=== PATIENT | female | born 1990 | race Caucasian/White ===

== ENCOUNTER 2017-04-13 12:10 | Emergency (ER) | payer SELFPAY ==
[2017-04-13] MEDS ORDERED: Ondansetron 4 MG/2 ML SDV IVPUSH ONE (12:46)
[2017-04-13] MEDS ORDERED: Sodium Chloride 0.9% 1,000 ML IV ONE (12:46)
[2017-04-13] MEDS ORDERED: Ketorolac 30 MG/ML SDV IM ONE (12:46)
--- NOTE | 2017-04-13 12:54 | EDM.PDOC ---
ED HPI GENERAL MEDICAL PROBLEM - General Chief Complaint: Abdominal Pain Stated Complaint: LOWER ABDOMINAL PAIN Time Seen by Provider: 04/13/17 12:46 Source of Information: Reports: Patient History Limitations: Reports: No Limitations - History of Present Illness INITIAL COMMENTS - FREE TEXT/NARRATIVE: Patient is a 26-year-old female who presents the emergency department today with a complaint of left lower abdominal pain and left flank pain. Patient states discomfort started in left lower abdomen yesterday and then progressed today to left flank. Patient states she does have a history of ovarian cysts. Patient also states that she noticed her urine is dark, has nausea but no vomiting. Patient denies vaginal discharge, sexual activity, fever, any trauma, bowel changes, or blood in stool. Patient declines pelvic exam at this time. Onset: Gradual Onset Date: 04/12/17 Duration: Day(s): Location: Reports: Abdomen Quality: Reports: Ache, Sharp Severity: Moderate Improves with: Reports: None Worsens with: Reports: None Associated Symptoms: Reports: Nausea/Vomiting Left Lower Abdomen Pain Score (Numeric/FACES): 10 - Related Data Allergies Allergy/AdvReac Type Severity Reaction Status Date / Time No Known Allergies Allergy Verified 04/13/17 12:20 Home Meds: Home Meds Cephalexin [Keflex] 500 mg PO TID #21 cap 04/13/17 [Rx] Dextroamphetamine/Amphetamine [Adderall 20 mg Tablet] 20 mg PO BID 04/13/17 [ History] traZODone 50 mg PO BEDTIME 04/13/17 [History] ED ROS GENERAL - Review of Systems Review Of Systems: ROS reveals no pertinent complaints other than HPI. Constitutional: Reports: No Symptoms HEENT: Reports: No Symptoms Respiratory: Reports: No Symptoms Cardiovascular: Reports: No Symptoms Endocrine: Reports: No Symptoms GI/Abdominal: Reports: Abdominal Pain, Nausea. Denies: Bloody Stool, Constipation, Diarrhea, Mucous in Stool, Vomiting : Reports: Flank Pain (left), Other (dark urine) Musculoskeletal: Reports: No Symptoms Skin: Reports: No Symptoms Neurological: Reports: No Symptoms Psychiatric: Reports: No Symptoms Hematologic/Lymphatic: Reports: No Symptoms Immunologic: Reports: No Symptoms ED EXAM, GI/ABD - Physical Exam Exam: See Below Exam Limited By: No Limitations General Appearance: Alert, WD/WN, No Apparent Distress Throat/Mouth: Normal Inspection, Normal Oropharynx, No Airway Compromise Head: Atraumatic, Normocephalic Neck: Normal Inspection Respiratory/Chest: No Respiratory Distress, Lungs Clear, Normal Breath Sounds, No Accessory Muscle Use, Chest Non-Tender Cardiovascular: Regular Rate, Rhythm, No Murmur GI/Abdominal Exam: Normal Bowel Sounds, Soft, Tender (RLQ). No: Guarding, Rigid , Rebound (Female) Exam: Deferred (PT REFUSED) Back Exam: CVA Tenderness (L). No: CVA Tenderness (R) Extremities: Normal Inspection, No Pedal Edema Neurological: Alert, Oriented, Normal Cognition Psychiatric: Normal Affect, Normal Mood Skin Exam: Warm, Dry, Intact, Normal Color, No Rash Course - Vital Signs Last Recorded V/S: Last Vital Signs Temp 96.7 F 04/13/17 12:23 Pulse 77 04/13/17 12:23 Resp 20 04/13/17 12:23 BP 116/68 04/13/17 12:23 Pulse Ox 97 04/13/17 12:23 - Orders/Labs/Meds Orders: Active Orders 24 hr Category Date Time Status CBC WITH AUTO DIFF [HEME] Stat Lab 04/13/17 12:40 Ordered CMP [COMPREHENSIVE METABOLIC PN,CMP] [CHEM] Stat Lab 04/13/17 12:40 Ordered HCG QUANTITATIVE,SERUM [CHEM] Stat Lab 04/13/17 12:40 Ordered UA W/MICROSCOPIC [URIN] Stat Lab 04/13/17 12:40 Ordered Sodium Chloride 0.9% @ 999 MLS/HR (1000ml) Med 04/13/17 12:46 Ordered Sodium Chloride 0.9% [Normal Saline] 1,000 ml IV .BOLUS Medication Orders Sodium Chloride (Normal Saline) 1,000 mls @ 999 mls/hr IV .BOLUS ONE Stop: 04/13/17 13:46 Meds: Medications Generic Name Dose Route Start Last Admin Trade Name Freq PRN Reason Stop Dose Admin Sodium Chloride 1,000 mls @ 999 mls/hr 04/13/17 12:46 Normal Saline IV 04/13/17 13:46 .BOLUS ONE Discontinued Medications Generic Name Dose Route Start Last Admin Trade Name Freq PRN Reason Stop Dose Admin Ketorolac Tromethamine 30 mg 04/13/17 12:46 Toradol IM 04/13/17 12:47 ONETIME ONE Ondansetron HCl 4 mg 04/13/17 12:46 Zofran IVPUSH 04/13/17 12:47 ONETIME ONE - Radiology Interpretation Free Text/Narrative:: CT abdomen and pelvis without contrast shows no acute process. - Re-Assessments/Exams Free Text/Narrative Re-Assessment/Exam: 04/13/17 14:23 Patient afebrile, nontoxic appearing, vital signs stable, pain relieved. Mother at bedside. Rocephin 1 g IV given in ER. Patient will be sent home with Keflex for 7 days. Follow-up with PCP and 3-5 days. Departure - Departure Time of Disposition: 14:23 Disposition: Home, Self-Care 01 Condition: Good Clinical Impression: UTI (urinary tract infection) Qualifiers: Urinary tract infection type: acute cystitis Hematuria presence: with hematuria Qualified Code(s): N30.01 - Acute cystitis with hematuria - Discharge Information Instructions: Urinary Tract Infection, Adult, [id number] Referrals: Joanna Camacho PA-C [Primary Care Provider] - Forms: ED Department Discharge Additional Instructions: Follow-up with PCP in the next 3-5 days. Return to emergency department sooner if symptoms continue or worsen. - My Orders Last 24 Hours: My Active Orders 04/13/17 12:40 CBC WITH AUTO DIFF [HEME] Stat CMP [COMPREHENSIVE METABOLIC PN,CMP] [CHEM] Stat HCG QUANTITATIVE,SERUM [CHEM] Stat UA W/MICROSCOPIC [URIN] Stat 04/13/17 12:46 Sodium Chloride 0.9% @ 999 MLS/HR (1000ml) Sodium Chloride 0.9% [Normal Saline] 1,000 ml IV .BOLUS - Assessment/Plan Last 24 Hours: My Active Orders 04/13/17 12:40 CBC WITH AUTO DIFF [HEME] Stat CMP [COMPREHENSIVE METABOLIC PN,CMP] [CHEM] Stat HCG QUANTITATIVE,SERUM [CHEM] Stat UA W/MICROSCOPIC [URIN] Stat 04/13/17 12:46 Sodium Chloride 0.9% @ 999 MLS/HR (1000ml) Sodium Chloride 0.9% [Normal Saline] 1,000 ml IV .BOLUS Assessment:: UTI Plan: Follow-up with PCP
[2017-04-13] MEDS ORDERED: cefTRIAXone 1 GM Vial IVPUSH ONE (13:16)
[2017-04-13 13:29] LABS: CHLORIDE,CL 102 mmol/L (98-115); SODIUM,NA 138 mmol/L (136-145)
== END 2017-04-13 14:30 | disposition home or self-care (01) ==
LOC: KA.ED 12:10
DX: N30.01 Acute cystitis with hematuria (principal)
CPT/HCPCS: 74176; 80053; 81001; 84702; 85025; 96361; 96372; 96374; 96375; 99284; J0696; J1885; J2405; J7030; 87086; 87186

== ENCOUNTER 2018-12-01 13:08 | Emergency (ER) | payer SELFPAY ==
--- NOTE | 2018-12-01 13:57 | EDM.PDOC ---
ED HPI GENERAL MEDICAL PROBLEM - General Chief Complaint: Lower Extremity Injury/Pain Stated Complaint: RIGHT ANKLE INJURY Time Seen by Provider: 12/01/18 13:10 Source of Information: Reports: Patient - History of Present Illness INITIAL COMMENTS - FREE TEXT/NARRATIVE: Patient presents to the emergency room today with complaints of pain swelling over the lateral aspect of her right ankle. She had an inversion type injury yesterday evening while walking. She has pain, tenderness and swelling laterally. She has difficulty bearing weight due to discomfort. She tried ice packs last night and took ibuprofen this morning. 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) Other Treatments INSIDE HORTICULTURAL SPECIALTY GROWER: ibuprofen Right Ankle Pain Score (Numeric/FACES): 7 - Related Data Allergies Allergy/AdvReac Type Severity Reaction Status Date / Time No Known Allergies Allergy Verified 12/01/18 13:14 Home Meds: Home Meds Dextroamphetamine/Amphetamine [Adderall 20 mg Tablet] 40 mg PO BID 04/13/17 [ History] ALPRAZolam [Xanax] 0.25 mg PO Q4H PRN 12/01/18 [History] Escitalopram [Lexapro] 40 mg PO DAILY 12/01/18 [History] Past Medical History HEENT History: Reports: Impaired Vision 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 ED EXAM, GENERAL - Physical Exam Exam: See Below Exam Limited By: No Limitations General Appearance: Alert, WD/WN, No Apparent Distress Ears: Hearing Grossly Normal Nose: Normal Inspection Throat/Mouth: Normal Voice Head: Atraumatic Neck: Normal Inspection Respiratory/Chest: No Respiratory Distress Extremities: Joint Swelling, Limited Range of Motion, Other (Right ankle exam shows swelling over the lateral aspect ankle she's tender along the lateral ankle gutter particularly over ATF ligament. She has mild tenderness palpation over the distal fibula. She has no tenderness proximally up to the knee. There is no tenderness on the medial ankle joint no deltoid ligament tenderness good pushoff strength with continuity Achilles is felt throughout. Pulses are 2+ skin is warm dry and intact there's no abrasions. There is no pain or tenderness with heel compression. No mid or forefoot tenderness told her mobile) Neurological: Alert, Oriented, No Motor/Sensory Deficits Psychiatric: Normal Affect, Normal Mood Skin Exam: Warm, Dry, Intact, Normal Color, No Rash Course - Vital Signs Last Recorded V/S: Last Vital Signs Temp 98.1 F 12/01/18 13:10 Pulse 60 12/01/18 13:10 Resp 18 12/01/18 13:10 BP 146/75 H 12/01/18 13:10 Pulse Ox 95 12/01/18 13:10 - Orders/Labs/Meds Orders: Active Orders 24 hr Category Date Time Status Ankle Min 3V Rt [CR] Stat Exams 12/01/18 13:31 Ordered - Radiology Interpretation Free Text/Narrative:: 3 views right ankle Discussion : there is soft tissue swelling over the lateral aspect of the ankle no fracture no ankle dislocation Impression: Negative for fracture right ankle. Soft tissue swelling laterally Departure - Departure Time of Disposition: 13:57 Disposition: Home, Self-Care 01 Condition: Good Clinical Impression: Right ankle sprain Qualifiers: Encounter type: initial encounter Involved ligament of ankle: anterior talofibular ligament Qualified Code(s): S93.491A - Sprain of other ligament of right ankle, initial encounter - Discharge Information Instructions: How to Use a Stirrup Ankle Brace, [id number], RICE Therapy for Routine Care of Injuries, [id number], Ankle Sprain, Phase I Rehab-SportsMed Referrals: PCP,Not In Area [Primary Care Provider] - Forms: ED Department Discharge - My Orders Last 24 Hours: My Active Orders 12/01/18 13:31 Ankle Min 3V Rt [CR] Stat - Assessment/Plan Last 24 Hours: My Active Orders 12/01/18 13:31 Ankle Min 3V Rt [CR] Stat Assessment:: Right ankle sprain Plan: 1. R.I.C.E (rest, ice, compression, elevation) 2. Ibuprofen 800 mg 3 times a day with food for pain 3. Ankle brace for stability. 4. Crutches as needed for ambulation patient may weight-bear as tolerated as comfort allows. 5. Follow-up with your primary care in a week to 10 days for clinical check and begin phase I rehabilitation for ankle sprain.
--- NOTE | 2018-12-01 14:14 | CR ---
[id number] RAD/RAD Ankle Right 3V Min EXAM: RIGHT ANKLE 3 VIEWS INDICATION: Ankle injury with swelling. COMPARISON: None. DISCUSSION: Lateral soft tissue swelling. No acute fracture, dislocation or other osseous abnormality is identified. IMPRESSION: 1. Soft tissue swelling. No fracture identified. Rainer Trevino MD 12/01/18 1735 Thank you for allowing us to participate in the care of your patient.
== END 2018-12-01 14:15 | disposition home or self-care (01) ==
LOC: KA.ED 13:08
DX: S93.491A Sprain of other ligament of right ankle, initial encounter (principal); F41.9 Anxiety disorder, unspecified; F32.9 Major depressive disorder, single episode, unspecified; F17.210 Nicotine dependence, cigarettes, uncomplicated; Z79.899 Other long term (current) drug therapy; X50.1XXA Overexertion from prolonged static or awkward postures, initial encounter
CPT/HCPCS: 73610-RT; 99283; 99283-25

== ENCOUNTER 2019-07-07 11:00 | Emergency (ER) | payer SELFPAY ==
[2019-07-07] MEDS ORDERED: Sodium Chloride 0.9% 10 ML Syringe FLUSH PRN (11:10)
--- NOTE | 2019-07-07 11:11 | EDM.PDOC ---
ED HPI GENERAL MEDICAL PROBLEM - General Chief Complaint: Abdominal Pain Stated Complaint: ABDOMINAL PAIN Time Seen by Provider: 07/07/19 11:08 History Limitations: Reports: No Limitations - History of Present Illness INITIAL COMMENTS - FREE TEXT/NARRATIVE: Emma, has been experiencing upper abdominal discomfort for the past 2 weeks. She states this is been consistent, slightly worsening but not severe. Has sought no evaluation during this time and presents today as it is her first day off available for evaluation. It is been prominent epigastric today, worsening with lifting and bending, making her question if it is some form of hernia or strain muscle. She has not been using any antacid or reflux medication recently. Stated they were given at one time and only used for a couple weeks and was cleared for cessation of those medications, when she was at the [facility] for her follow-up. Last menses was between the and june, regular. Is on Nexplanon implant at this time stating it is approaching expiration and needs to be removed. Denies risk. Discomfort does not change with eating or drinking, does not change with bowel movement nor urination. Discomfort seems to be related to position primarily. Denies recent travel, fever or chills, or any specific trauma. 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 (see below) (NONE) Right Upper Abdominal Pain Score (Numeric/FACES): 4 - Related Data Allergies Allergy/AdvReac Type Severity Reaction Status Date / Time No Known Allergies Allergy Verified 07/07/19 11:08 Home Meds: Home Meds Dextroamphetamine/Amphetamine [Adderall 20 mg Tablet] 20 mg PO BID 04/13/17 [ History] ALPRAZolam [Xanax] 0.25 mg PO Q4H PRN 12/01/18 [History] Escitalopram [Lexapro] 40 mg PO DAILY 12/01/18 [History] Past Medical History HEENT History: Reports: Impaired Vision Gastrointestinal History: Reports: None 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: , 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 (See Below) 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: Psychiatric History: Reports: ADD, Anxiety, Depression, Panic Attack - Infectious Disease History Infectious Disease History: Reports: Chicken Pox Social & Family History - Family History Family Medical History: Noncontributory - Tobacco Use Smoking Status *Q: Current Every Day Smoker Tobacco Use Within Last Twelve Months: Cigarettes - Caffeine Use Caffeine Use: Reports: Soda ED ROS GENERAL - Review of Systems Review Of Systems: See Below Constitutional: Reports: No Symptoms HEENT: Reports: No Symptoms Respiratory: Reports: No Symptoms Cardiovascular: Reports: No Symptoms Endocrine: Reports: No Symptoms GI/Abdominal: Reports: Abdominal Pain. Denies: Constipation, Diarrhea : Reports: No Symptoms. Denies: Irregular Menses Musculoskeletal: Reports: Muscle Pain Skin: Reports: No Symptoms Neurological: Reports: No Symptoms Psychiatric: Reports: No Symptoms Hematologic/Lymphatic: Reports: No Symptoms Immunologic: Reports: No Symptoms ED EXAM, GENERAL - Physical Exam Exam: See Below Exam Limited By: No Limitations General Appearance: Alert, WD/WN, No Apparent Distress Ears: Normal External Exam, Normal Canal, Hearing Grossly Normal, Normal TMs Nose: Normal Inspection, Normal Mucosa, No Blood Throat/Mouth: Normal Inspection, Normal Lips, Normal Teeth, Normal Gums, Normal Oropharynx, Normal Voice, No Airway Compromise Head: Atraumatic, Normocephalic Neck: Normal Inspection, Supple, Non-Tender, Full Range of Motion Respiratory/Chest: No Respiratory Distress, Lungs Clear, Normal Breath Sounds, No Accessory Muscle Use, Chest Non-Tender Cardiovascular: Normal Peripheral Pulses, Regular Rate, Rhythm, No Edema, No Gallop, No JVD, No Murmur, No Rub GI/Abdominal: Normal Bowel Sounds, Soft, No Organomegaly, No Distention, No Abnormal Bruit, No Mass, Tender (Predominantly mid upper abdominal and epigastric), Other (There is no pain to percussion of the flank. There is no pain of the regions of the abdomen, with no rebound tenderness.) (Female) Exam: Deferred Rectal (Female) Exam: Deferred Back Exam: Normal Inspection, Full Range of Motion. No: CVA Tenderness (L), CVA Tenderness (R), Paraspinal Tenderness, Vertebral Tenderness Extremities: Normal Inspection, Normal Range of Motion, Non-Tender, Normal Capillary Refill, No Pedal Edema Neurological: Alert, Oriented, CN II-XII Intact, Normal Cognition, Normal Gait, Normal Reflexes, No Motor/Sensory Deficits Psychiatric: Normal Affect, Normal Mood Skin Exam: Warm, Dry, Intact, Normal Color, No Rash Lymphatic: No Adenopathy Course - Vital Signs Last Recorded V/S: Last Vital Signs Temp 35.8 C L 07/07/19 11:15 Pulse 62 07/07/19 11:15 Resp 14 07/07/19 11:15 BP 121/72 07/07/19 11:15 Pulse Ox 96 07/07/19 11:15 - Orders/Labs/Meds Orders: Active Orders 24 hr Category Date Time Status Peripheral IV Care [RC] . DIRECTED Care 07/07/19 11:10 Active Sodium Chloride 0.9% [Saline Flush] Med 07/07/19 11:10 Active 10 ml FLUSH Q8HR PRN Peripheral IV Insertion Adult [OM.PC] Routine Oth 07/07/19 11:10 Ordered Medication Orders Sodium Chloride (Saline Flush) 10 ml FLUSH Q8HR PRN PRN Reason: keep vein open Labs: Laboratory Tests 07/07/19 07/07/19 07/07/19 Range/Units 11:14 11:14 11:34 WBC 6.88 (5.00-10.00) 10^3/uL RBC 4.47 (3.80-5.50) 10^6/uL Hgb 13.9 (12.0-16.0) g/dL Hct 42.3 (37.0-47.0) % MCV 94.6 H (82.0-92.0) fL MCH 31.1 H (27.0-31.0) pg MCHC 32.9 (32.0-36.0) g/dL RDW 12.3 (11.5-14.5) % Plt Count 232 (150-400) 10^3/uL MPV 11.7 H (7.4-10.4) fL Immature Gran % (Auto) 0.0 (0.0-5.0) % Neut % (Auto) 61.6 (50.0-70.0) % Lymph % (Auto) 29.2 (20.0-40.0) % [place] % (Auto) 6.8 (2.0-8.0) % Eos % (Auto) 2.0 (1.0-3.0) % Baso % (Auto) 0.4 (0.0-1.0) % Immature Gran # (Auto) 0.00 (0.00-0.50) 10^3/uL Neut # (Auto) 4.23 (2.50-7.00) 10^3/uL Lymph # (Auto) 2.01 (1.00-4.00) 10^3/uL [place] # (Auto) 0.47 (0.10-0.80) 10^3/uL Eos # (Auto) 0.14 (0.10-0.30) 10^3/uL Baso # (Auto) 0.03 (0.00-0.10) 10^3/uL Sodium 142 (136-145) mmol/L Potassium 4.1 (3.3-5.3) mmol/L Chloride 106 (98-115) mmol/L Carbon Dioxide 22.2 (21.0-32.0) mmol/L Anion Gap 17.9 H (5-15) mmol/L BUN 9 (6-25) mg/dL Creatinine 0.59 (0.51-1.17) mg/dL Est Cr Clr Drug Dosing 136.82 mL/min Estimated GFR (MDRD) > 60 mL/min Glucose 105 H (75 - 99) mg/dL Calcium 8.2 L (8.7-10.3) mg/dL Total Bilirubin 0.4 (0.2-1.0) mg/dL AST 21 (15-37) U/L ALT 22 (12-78) U/L Alkaline Phosphatase 87 (46-116) IU/L Total Protein 6.5 (6.4-8.2) g/dL Albumin 3.30 (3.00-4.80) g/dL Amylase 68 (25-125) U/L Lipase 95 (73-393) U/L HCG, Qual Negative (NEGATIVE) Specimen Type . Urine Color Light yellow (YELLOW) Urine Appearance Slightly cloudy H (CLEAR) Urine pH 5.5 (5.0-9.0) Ur Specific [place] >= 1.030 (1.005-1.030) Urine Protein Negative (NEGATIVE) mg/dL Urine Glucose (UA) Negative (NEGATIVE) mg/dL Urine Ketones Negative (NEGATIVE) mg/dL Urine Occult Blood Negative (NEGATIVE) Urine Nitrite Negative (NEGATIVE) Urine Bilirubin Negative (NEGATIVE) Urine Urobilinogen 0.2 (0.2-1.0) E.U./dL Ur Leukocyte Esterase Negative (NEGATIVE) Meds: Medications Generic Name Dose Route Start Last Admin Trade Name Freq PRN Reason Stop Dose Admin Sodium Chloride 10 ml 07/07/19 11:10 Saline Flush FLUSH Q8HR PRN keep vein open Departure - Departure Time of Disposition: 13:23 Disposition: Home, Self-Care 01 Condition: Good Clinical Impression: Strain of abdominal muscle, Impairment of urinary concentration - Discharge Information *PRESCRIPTION DRUG MONITORING PROGRAM REVIEWED*: Not Applicable *COPY OF PRESCRIPTION DRUG MONITORING REPORT IN PATIENT MINDY: Not Applicable Instructions: Muscle Strain, [id number] Referrals: Mona Joshi MD [Primary Care Provider] - Forms: ED Department Discharge Additional Instructions: In review of all laboratory analysis conducted today, the only abnormal finding is the concentration of your urine. This would be benefited by increasing your water intake, as it would flush your urine system, having you void more often. May try Tylenol and/or ibuprofen to see if it would benefit your discomfort. You need to schedule a follow-up evaluation with your clinic to discuss other evaluation/treatment options. This should be done in the upcoming week. You should also discuss having the Implanon removed by the appropriate services available. Another form of control should be considered prior to that removal. Sepsis Event Note - Focused Exam Vital Signs: Vital Signs Temp Pulse Resp BP Pulse Ox 07/07/19 11:15 35.8 C L 62 14 121/72 96 Date Exam was Performed: 07/07/19 Time Exam was Performed: 13:22 - Problem List & Annotations (1) Abdominal pain SNOMED Code(s): 34118611 Code(s): R10.9 - UNSPECIFIED ABDOMINAL PAIN Status: Acute Current Visit: No Qualifiers: Abdominal location: upper abdomen, unspecified Qualified Code(s): R10.10 - Upper abdominal pain, unspecified (2) Nicotine dependence SNOMED Code(s): 77387560 Code(s): F17.200 - NICOTINE DEPENDENCE, UNSPECIFIED, UNCOMPLICATED Status: Chronic Priority: Medium Current Visit: Yes Qualifiers: Nicotine product type: cigarettes (3) Impairment of urinary concentration SNOMED Code(s): 42175313 Code(s): N28.89 - OTHER SPECIFIED DISORDERS OF KIDNEY AND URETER Status: Acute Priority: Medium Current Visit: Yes (4) Strain of abdominal muscle SNOMED Code(s): 068405973 Code(s): S39.011A - STRAIN OF MUSCLE, FASCIA AND TENDON OF ABDOMEN, INIT ENCNTR Status: Acute Current Visit: Yes Qualifiers: Encounter type: initial encounter Qualified Code(s): S39.011A - Strain of muscle, fascia and tendon of abdomen, initial encounter - Problem List Review Problem List Initiated/Reviewed/Updated: Yes - My Orders Last 24 Hours: My Active Orders 07/07/19 11:10 Peripheral IV Care [RC] . DIRECTED Sodium Chloride 0.9% [Saline Flush] 10 ml FLUSH Q8HR PRN Peripheral IV Insertion Adult [OM.PC] Routine - Assessment/Plan Last 24 Hours: My Active Orders 07/07/19 11:10 Peripheral IV Care [RC] . DIRECTED Sodium Chloride 0.9% [Saline Flush] 10 ml FLUSH Q8HR PRN Peripheral IV Insertion Adult [OM.PC] Routine Plan: In review of all laboratory analysis conducted today, the only abnormal finding is the concentration of your urine. This would be benefited by increasing your water intake, as it would flush your urine system, having you void more often. May try Tylenol and/or ibuprofen to see if it would benefit your discomfort. You need to schedule a follow-up evaluation with your clinic to discuss other evaluation/treatment options. This should be done in the upcoming week. You should also discuss having the Implanon removed by the appropriate services available. Another form of control should be considered prior to that removal.
[2019-07-07 11:25] VITALS: BP 121/72; PULSE 62
[2019-07-07 11:52] LABS: ANION GAP 17.9 mmol/L (5-15); CHLORIDE,CL 106 mmol/L (98-115); SODIUM,NA 142 mmol/L (136-145)
--- NOTE | 2019-07-07 13:02 | CT ---
[id number] CT/CT Abdomen Pelvis W IV EXAM: CT Abdomen Pelvis W IV CLINICAL DATA: ABDOMINAL PAIN, UNKNOWN ETIOLOGY. COMPARISON STUDY: None. FINDINGS: Lung bases are clear. Liver, spleen, gallbladder, pancreas, adrenal glands, and kidneys are unremarkable. No renal calculi are identified. No hydronephrosis or hydroureter. No bowel obstruction or inflammation. The appendix is visualized and appears normal. Colonic diverticulosis without evidence of acute diverticulitis. Moderate amount of retained stool within the colon. No lymphadenopathy, free fluid, or pneumoperitoneum. The uterus is unremarkable. No fracture or osseous lesion. IMPRESSION: Moderate amount of retained stool within the colon. Correlate for constipation. Gary Duggan DO 07/07/19 1758 Thank you for allowing us to participate in the care of your patient.
[2019-07-08] MEDS ORDERED: Iopamidol 755 Mg/ML 100 ML Bottle IV ONE (08:52)
[2019-07-08] MEDS ORDERED: Sodium Chloride 0.9% 50 ML IV SCH (09:00)
== END 2019-07-07 13:35 | disposition home or self-care (01) ==
LOC: KA.ED 11:00
DX: S39.011A Strain of muscle, fascia and tendon of abdomen, initial encounter (principal); N28.89 Other specified disorders of kidney and ureter; F41.9 Anxiety disorder, unspecified; F32.9 Major depressive disorder, single episode, unspecified; Z79.899 Other long term (current) drug therapy; F17.210 Nicotine dependence, cigarettes, uncomplicated; X50.0XXA Overexertion from strenuous movement or load, initial encounter; Y99.0 Civilian activity done for income or pay
CPT/HCPCS: 36415; 74177; 80053; 81003; 82150; 83690; 84703; 85025; 99284; 99284-25; J7050; Q9967